=== PATIENT | female | born 1950 | race Caucasian/White ===

== ENCOUNTER → 2017-06-21 | Outpatient (CLI) | payer MEDICARE, OTHER ==
[~2017-06-21] MED LIST: ALLOPURINOL300 MG PO; AMLODIPINE BESY10 MG PO; ARTIFICIAL TEAR15 ML OP; ATENOLOL50 MG PO; BACTRIM DS TAB1 EACH PO; CEFTIN PO; CLONIDINE HCL0.2 MG PO; CLOPIDOGREL75 MG PO; DIOVAN320 MG PO; FUROSEMIDE20 MG PO; JANUVIA100 MG PO; JANUVIA50 MG PO; LASIX40 MG PO; LEVOTHYROXINE150 MCG PO; LEVOTHYROXINE75 MCG PO; LISINOPRIL10 MG PO; LYRICA150 MG PO; LYRICA75 MG PO; MELOXICAM7.5 MG PO; METFORMIN HCL1000 MG PO; METFORMIN HCL500 MG PO; METOPROLOL SUC100 MG PO; METOPROLOL SUCC50 MG PO; NITROGLYCERIN1 EAC1 TD; OMEPRAZOLE40 MG PO; OXYBUTYNIN CHLOR5 MG PO; PROAIR HFA INH8.5 GM INH; PROMETHAZINE HC25 M1 PO; SPIRIVA18 MCG INH; TRADJENTA PO; TRIAMCINOLONE A15 G2; TYLENOL # 31 EA PO; TYLENOL WITH C1 EACH PO; VALSARTAN PO; VESICARE5 MG PO
--- NOTE | 2017-06-21 09:05 | Diagnostic Imaging Report ---
PROCEDURE:X-RAY ABDOMEN - KUB COMPARISON:CT abdomen and pelvis 12/03/2016. INDICATIONS:CALCULUS OF THE KIDNEY FINDINGS: There is a non-obstructed bowel-gas pattern. Multiple splenic calcifications are noted. There are no calcifications projected over the renal shadows, expected course of the ureters or bladder. Phleboliths are present in the pelvis. There are no acute osseous abnormalities. Degenerative changes of the lumbar spine. The lung bases are clear. CONCLUSION: No acute radiographic abnormality. Dictated by: Bethel Sweeney M.D. on 06/21/2017 at 9:07 Electronically approved by: Bethel Sweeney M.D. on 06/21/2017 at 9:07
== END ==
LOC: RAD 08:07
PROVIDERS: ATTEND Urology
DX: N20.0 Calculus of kidney (principal)
CPT/HCPCS: 74018

== ENCOUNTER 2017-08-30 04:04 | Inpatient (IN) | payer MEDICARE, OTHER ==
[2017-08-30] VITALS (7 sets, daily range): BP systolic 104–161; BP diastolic 51–71
[~2017-08-30] VITALS: Ht 154.9 cm; Wt 133.4 kg
[2017-08-30] MEDS ORDERED: ASPIRIN 81 MG CHEW TAB PO ONE ×2 (04:15→05:15)
[2017-08-30 04:30] LABS: BASOPHILS % 0.2 % (0.0-1.0); EOSINOPHILS % 0.1 % (0.0-6.0); HEMATOCRIT 41.2 % (34.2-44.1); HEMOGLOBIN 13.6 g/dL (12.0-16.0); LYMPHOCYTES # (AUTO) 3.5 (1.0-3.2); LYMPHOCYTES % 34.7 % (18.0-39.1); MEAN CORPUSCULAR HEMOGLOBIN 29.3 pg (28-32); MEAN CORPUSCULAR VOLUME 88.8 fL (81-99); MONOCYTES # (AUTO) 0.6 (0.2-0.8); MONOCYTES % 6.1 % (4.4-11.3); NEUTROPHILS % 58.4 % (38.7-80.0); PLATELET COUNT 247 x10e3/uL (140-360); RED BLOOD COUNT 4.64 x10e6/uL (3.6-5.1); RED CELL DISTRIBUTION WIDTH 16.6 % (11.7-14.4)
[2017-08-30 04:34] LABS: CLARITY,URINE SL CLOUDY (CLEAR); COLOR,URINE YELLOW (YELLOW)
[2017-08-30 04:35] LABS: BILIRUBIN,URINE NEGATIVE (NEGATIVE); KETONES,URINE NEGATIVE (NEGATIVE); LEUKOCYTE ESTERASE ,URINE 2+ (NEGATIVE); NITRITE,URINE NEGATIVE (NEGATIVE); PROTEIN,URINE DIPSTICK NEGATIVE (NEGATIVE); URINE UROBILINOGEN 0.2 mg/dL (0.2 - 1)
[2017-08-30 04:37] LABS: BACTERIA,URINE MANY /HPF; EPITHELIAL CELLS,URINE MANY /LPF; WBC,URINE (MAN) >50 /HPF (0-5)
[2017-08-30 04:39] LABS: INR 1.05; PROTHROMBIN TIME 12.9 seconds (11.9-14.5)
[2017-08-30 04:40] LABS: PARTIAL THROMBOPLASTIN TIME 29.7 seconds (23.8-35.5)
[2017-08-30 04:47] LABS: ALANINE AMINOTRANSFERASE 21 IU/L (0-55); ALBUMIN 3.7 g/dL (3.5-5.0); ALKALINE PHOSPHATASE 99 IU/L (40-150); ANION GAP 13.4 mmol/L (8-16); BLOOD UREA NITROGEN 16 mg/dL (7-26); BUN/CREATININE RATIO 21 (6-25); CALCIUM 9.4 mg/dL (8.4-10.2); CARBON DIOXIDE 28 mmol/L (22-29); CHLORIDE 104 mmol/L (98-107); CREATINE KINASE 59 IU/L (29-168); CREATININE, SERUM 0.77 mg/dL (0.57-1.11); EST GLOMERULAR FILTRATION RATE > 60 ML/MIN (60-); GLUCOSE 138 mg/dL (74-118); MAGNESIUM 1.7 MG/DL (1.3-2.1); POTASSIUM 4.4 mmol/L (3.5-5.1); SODIUM 141 mmol/L (136-145)
[2017-08-30] MEDS ORDERED: XIIDRA OP (04:48)
--- NOTE | 2017-08-30 05:22 | Diagnostic Imaging Report ---
EXAMINATION: CHEST SINGLE (NOT PORTABLE) INDICATION: Chest pain COMPARISON: 12/24/2016 FINDINGS: TUBES and LINES: None. LUNGS: Lungs are not well inflated. There are bibasilar atelectasis. Left lower lobe is not visualized cardiac silhouette PLEURA: No pleural effusion or pneumothorax. HEART AND MEDIASTINUM: Cardiac size is severely enlarged. There are atherosclerotic calcifications within the aorta. BONES AND SOFT TISSUES: No acute osseous lesion. Soft tissues are unremarkable. UPPER ABDOMEN: No free air under the diaphragm. IMPRESSION: Moderate cardiomegaly without decompensation. Signed by: Dr. Patrick Riddle M.D. on 08/30/2017 5:19 AM
--- NOTE | 2017-08-30 07:04 | Diagnostic Imaging Report ---
EXAM: CT Chest WITH contrast 08/30/2017 5:27 AM INDICATION: Pulmonary embolism COMPARISON: None TECHNIQUE: Chest was scanned utilizing a multidetector helical scanner from the lung apex through the level of the adrenal glands without administration of IV contrast. Coronal and sagittal reformations were obtained. PE protocol was performed. IV CONTRAST: 65 mL of Isovue-370 RADIATION DOSE: Total DLP: 606.19 mGy*cm Estimated effective dose: (DLP x 0.014 x size factor) mSv COMPLICATIONS: None FINDINGS: LINES/ TUBES: None. LUNGS AND AIRWAYS: The lungs are remarkable for calcified granuloma in the right midlung. Airways are normal. PLEURA: The pleural spaces are clear. HEART AND MEDIASTINUM: The thyroid gland is normal. No mediastinal, hilar or axillary lymphadenopathy. The heart is normal in size.. There is no pericardial effusion. There are moderate atherosclerotic calcifications in the aorta and coronary arteries. UPPER ABDOMEN: Limited non-contrast views of the upper abdomen show no abnormality within the visualized liver, pancreas, or kidneys. The adrenal glands are normal. Calcified granulomas in the spleen. BONES: The visualized bony thorax is within normal limits. SOFT TISSUES: Unremarkable. IMPRESSION: No evidence of pulmonary embolism or acute intrathoracic abnormality. Signed by: Dr. Patrick Riddle M.D. on 08/30/2017 7:01 AM
[2017-08-30] MEDS ORDERED: IOPAMIDOL 370 MG/ML 200 ML INFUS..BTL INJ ONE (07:12)
[2017-08-30] MEDS ORDERED: SODIUM CHLORIDE 0.9% 50ML 50 ML ONE (07:12)
[2017-08-30 08:22] LABS: CHOL/HDL RATIO 4.8 (3.0-3.6)
[2017-08-30] MEDS: LEVOTHYROXINE SODIUM 100 MCG TAB PO SCH (09:00)
[2017-08-30] MEDS: ASPIRIN 81 MG ENTERIC COATED PO SCH (09:00)
[2017-08-30] MEDS ORDERED: LEVOTHYROXINE SODIUM 75 MCG TAB PO SCH (09:00)
[2017-08-30] MEDS: LEVOTHYROXINE SODIUM 75 MCG TAB PO SCH (09:00)
[2017-08-30] MEDS ORDERED: VALSARTAN 320 MG PO SCH (09:00)
[2017-08-30] MEDS ORDERED: ONDANSETRON HCL INJ 2 MG/ML VIAL IV PRN (09:45)
--- NOTE | 2017-08-30 10:22 | History and Physical ---
PRIMARY CARE PHYSICIAN: Dr. Linden Funk. CHIEF COMPLAINT: Chest pain. HISTORY OF PRESENT ILLNESS: This is a 67-year-old with a history of GERD, now developing chest discomfort, 10/10, sharp. No shortness of breath. She did have mild nausea and dizziness, but all symptoms have resolved. Her last stress test was more than 2 years ago. She has no coronary stents. She is currently symptom-free. PAST MEDICAL HISTORY: Obstructive uropathy, urolithiasis, hypertension, diabetes mellitus type 2, morbid obesity, hypothyroidism, and gout. 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 ALLERGIES: PER ELECTRONIC MEDICAL RECORD. FAMILY HISTORY/SOCIAL HISTORY: Patient is . She has 4 children. No alcohol or illicits. Quit cigarettes. MEDICATIONS: Per electronic medical record. REVIEW OF SYSTEMS: Denies any dizziness or chest pain at this time. Denies any nausea, vomiting, or diarrhea. Denies any headache or blurred vision. PHYSICAL EXAMINATION VITAL SIGNS: Reviewed. GENERAL: A tired-appearing woman resting in bed. HEENT: Anicteric. Pupils reactive to light. No oral lesions. CARDIOVASCULAR: Normal S1 and S2. She has a slow heart rate. LUNGS: Moderate breath sounds. ABDOMEN: Soft and nondistended. She has mild epigastric discomfort. EXTREMITIES: No edema or calf tenderness. NEUROLOGICAL: She is alert and oriented times 3. She is moving all extremities. SKIN: Dry. PSYCHIATRIC: Flat affect. LABS: Reviewed. MEDICATIONS: Reviewed. ASSESSMENT: This is a 67-year-old woman with 1. Chest pain. 2. Diabetes mellitus type 2. 3. Morbid obesity. 4. Hypertension. 5. Bradycardia. 6. Hypothyroidism. 7. Gastroesophageal reflux disease. PLAN 1. Trend cardiac enzymes. 2. Follow cardiology recommendation. 3. Left ventricular ejection fraction normal. 4. Obtain hemoglobin A1c and lipid panel. 5. Needs caloric restriction outpatient for weight loss and exercise. 6. Hold beta kaushal due to bradycardia and use hydralazine. 7. Start Lovenox . 8. Disposition: Follow up cardiology recommendations. First cardiac enzyme is negative which was today at 4 a.m. We will obtain a 2nd cardiac enzyme to further assess. Job#: [id number] CF
[2017-08-30] MEDS: VALSARTAN 160 MG TAB PO SCH (10:30)
[2017-08-30] MEDS: HYDRALAZINE HCL 25 MG TAB PO SCH ×3 (10:30→21:18)
[2017-08-30] MEDS: ALLOPURINOL 300 MG TAB PO SCH (10:30)
[2017-08-30] MEDS: PREGABALIN 75 MG CAP PO SCH ×3 (10:30→21:18)
[2017-08-30] MEDS: FUROSEMIDE 40 MG TAB PO SCH (10:30)
--- NOTE | 2017-08-30 11:40 | Consultation ---
DATE OF CONSULTATION: August 30, 2017 CARDIOLOGY CONSULTATION ATTENDING PHYSICIAN: Dr. Yañez Thanks so much for asking me to see this nice lady in consultation. Ms. Phillips is a pleasant 67-year-old woman who was admitted overnight through the emergency room with a complaint of substernal chest discomfort. HISTORY OF PRESENT ILLNESS: The patient reports this is her 1st time to have this type of discomfort and had been doing relatively well but was awakened overnight by substernal aching sort of discomfort that was not relieved until presenting to the emergency room. She denies having any similar previous problems. She does report that she has sleep apnea and that she does not use her CPAP and, thus, not treated. PAST MEDICAL HISTORY: Significant for lithotripsy in early 2018. She had remote ankle fracture with repair and says that recent endometrial biopsy suggested endometrial cancer but has not had a change to follow up on this yet. She has hypertension and hyperglycemia. HOME MEDICATIONS: Include: 1. Allopurinol 300 mg daily. 2. Furosemide 40 mg daily. 3. Levothyroxine 75 mcg daily. 4. Meloxicam 7.5 mg daily. 5. Metformin 1,000 mg b.i.d. 6. Metoprolol succinate 100 mg daily. 7. Lyrica 75-mg tablet, 150 mg t.i.d. 8. Diovan 320 mg daily. 9. Tradjenta 5 mg daily. 10. Eye drops. PERSONAL HISTORY: She does not smoke. REVIEW OF SYSTEMS CARDIAC: She has not had previous chest pain or knowledge of any cardiac problem. She has said that a visiting nurse who comes to the house has described perhaps a slight murmur. GASTROINTESTINAL: No significant problems previously diagnosed. PHYSICAL EXAMINATION GENERAL: Exam at this time shows a pleasant, morbidly obese, white woman sitting in a chair, 5 feet 1 inch tall, weighing 268 pounds. She thinks that she has lost some weight. VITALS: Blood pressure 106/51, pulse 51 and regular. HEENT: Unremarkable. NECK: No jugular venous distention, although the neck is very thick. THORAX: Heart sounds S1 and S2 are equal. There is a faint 1/6 systolic murmur. LUNGS: Relatively clear. ABDOMEN: Markedly protuberant. EXTREMITIES: No cyanosis, clubbing or edema. EKG shows sinus bradycardia with competing junctional rhythm. LABS: Initial laboratory studies show glucoses 138 and 174. Urinalysis shows greater than 50 white cells per high power field. CAT scan of the chest shows minor calcification in the coronaries, no evidence of pulmonary embolus. Lipid profile shows cholesterol 177, triglycerides 159, HDL 37, LDL 108. ASSESSMENT 1. Chest discomfort, likely gastroesophageal reflux. 2. Morbid obesity. 3. Untreated sleep apnea. 4. Sinus bradycardia while taking metoprolol at home. 5. Hypertension. 6. Hyperglycemia. 7. Urinary tract infection. PLAN: Will withhold metoprolol and monitor blood pressure and heart rhythm. Await other cardiac enzymes and plan Cardiolite in the morning. Thank you for asking me to see her in consultation. Job#: [id number] cc:MD DEE DEE SONG DO CLEVE O. JAMES, MD
[2017-08-30 12:01] LABS: CREATINE KINASE MB 8.9 ng/mL (0-5.0)
[2017-08-30] MEDS ORDERED: DEXTROSE 50% SYRINGE 50 ML IV PRN (12:15)
[2017-08-30 15:05] LABS: BILIRUBIN,URINE NEGATIVE (NEGATIVE); CLARITY,URINE CLOUDY (CLEAR); COLOR,URINE YELLOW (YELLOW); KETONES,URINE NEGATIVE (NEGATIVE); LEUKOCYTE ESTERASE ,URINE 2+ (NEGATIVE); NITRITE,URINE NEGATIVE (NEGATIVE); PROTEIN,URINE DIPSTICK 1+ (NEGATIVE); URINE UROBILINOGEN 0.2 mg/dL (0.2 - 1)
[2017-08-30 15:17] LABS: BACTERIA,URINE FEW /HPF; EPITHELIAL CELLS,URINE FEW /LPF; WBC,URINE (MAN) 21-50 /HPF (0-5)
[2017-08-30] MEDS: FAMOTIDINE 20 MG TAB PO SCH (16:20)
[2017-08-30] MEDS: INSULIN LISPRO 100 UNIT/1 ML 3ML VIAL SQ SCH ×2 (16:20→21:18)
[2017-08-30] MEDS ORDERED: ENOXAPARIN SOD INJ 40 MG/0.4 ML SYR SC SCH (17:00)
[2017-08-30] MEDS ORDERED: SUCCINYLCHOLINE 200 MG/10 ML SYR ONE (17:01)
[2017-08-30] MEDS ORDERED: LIDOCAINE HCL 2% LOCAL INJ 5 ML SDV VIAL INJ ONE (17:01)
[2017-08-30] MEDS ORDERED: PROPOFOL IV EMULSION 10 MG/ML 20 ML VIAL ONE (17:01)
[2017-08-30] MEDS ORDERED: ROCURONIUM BROMIDE 10 MG/ML 5ML VIAL ONE (17:01)
[2017-08-30] MEDS ORDERED: SEVOFLURANE INHAL SOLN 250 ML PEN BTL ONE (17:01)
[2017-08-30 21:25] LABS: CREATINE KINASE MB 60.1 ng/mL (0-5.0)
[2017-08-30] MEDS ORDERED: CALCIUM CARBONATE 500 MG CHEWABLE TABS PO PRN (21:30)
[2017-08-30] MEDS: METOCLOPRAMIDE HCL 10 MG TAB PO SCH (22:16)
[2017-08-31] VITALS (60 sets, daily range): BP systolic 52–152; BP diastolic 26–94
[2017-08-31] MEDS ORDERED: ACETAMINOPHEN 325 MG TAB PO PRN (04:45)
[2017-08-31 05:06] LABS: BASOPHILS # (AUTO) 0.1 (0.0-0.1); BASOPHILS % 0.3 % (0.0-1.0); HEMATOCRIT 39.8 % (34.2-44.1); HEMOGLOBIN 13.1 g/dL (12.0-16.0); LYMPHOCYTES # (AUTO) 4.4 (1.0-3.2); MEAN CORPUSCULAR HEMOGLOBIN 29.5 pg (28-32); MEAN CORPUSCULAR HGB CONC 32.9 g/dL (31-35); MEAN CORPUSCULAR VOLUME 89.6 fL (81-99); MONOCYTES # (AUTO) 1.2 (0.2-0.8); MONOCYTES % 7.4 % (4.4-11.3); NEUTROPHILS % 65.9 % (38.7-80.0); PLATELET COUNT 264 x10e3/uL (140-360); RED BLOOD COUNT 4.44 x10e6/uL (3.6-5.1); RED CELL DISTRIBUTION WIDTH 16.9 % (11.7-14.4)
[2017-08-31] MEDS: LEVOTHYROXINE SODIUM 75 MCG TAB PO SCH (05:25)
[2017-08-31] MEDS: LEVOTHYROXINE SODIUM 100 MCG TAB PO SCH (05:25)
[2017-08-31 05:34] LABS: ALBUMIN 3.5 g/dL (3.5-5.0); ANION GAP 17.6 mmol/L (8-16); CALCIUM 9.1 mg/dL (8.4-10.2); CHOL/HDL RATIO 4.8 (3.0-3.6); POTASSIUM 4.6 mmol/L (3.5-5.1)
[2017-08-31 05:36] LABS: CREATININE, SERUM 1.73 mg/dL (0.57-1.11)
[2017-08-31] MEDS ORDERED: SODIUM CHLORIDE 0.9% 500ML 500 ML ONE (06:42)
[2017-08-31] MEDS ORDERED: SODIUM CHLORIDE 0.9% 500ML 500 ML IV ONE (07:00)
[2017-08-31] MEDS ORDERED: SODIUM CHLORIDE 0.9% 1000ML 1,000 ML IV SCH ×3 (07:00→15:44)
[2017-08-31 07:01] LABS: INR 1.08; PROTHROMBIN TIME 13.2 seconds (11.9-14.5)
[2017-08-31 07:02] LABS: PARTIAL THROMBOPLASTIN TIME 32.3 seconds (23.8-35.5)
--- NOTE | 2017-08-31 07:13 | Diagnostic Imaging Report ---
PROCEDURE: CHEST SINGLE (PORTABLE) COMPARISON: Chest radiograph and chest CT 08/30/2017. INDICATIONS: LOW HEART RATE FINDINGS: The lungs remain well inflated. No focal consolidation, pleural effusion, or pneumothorax. Calcified right hilar lymph nodes and calcified right midlung granuloma unchanged. Stable cardiomediastinal contour, with prominent mediastinal fat shown on comparison CT. No overt pulmonary edema. No acute osseous abnormality. CONCLUSION: No acute thoracic abnormality. Stable appearance of the chest relative to 08/30/2017. Dictated by: Quinton Acosta M.D. on 08/31/2017 at 7:16 Electronically approved by: Quinton Acosta M.D. on 08/31/2017 at 7:16
--- NOTE | 2017-08-31 07:28 | Diagnostic Imaging Report ---
Examination: CT BRAIN WITHOUT CONTRAST History:Headache. Left eye vision change. Comparison studies:None Technique: Axial images were obtained from the skull base to the vertex. Coronal and sagittal images reconstructed from the axial data. Intravenous contrast: None Findings: Scalp: No abnormalities. Bones: No fractures, blastic or lytic lesions. Brain sulci: Appropriate for age. Ventricles: Normal in size and configuration. No hydrocephalus. Extra-axial space: No abnormalities. Parenchyma: No abnormal densities. No masses, hemorrhage, or acute or chronic cortical based vascular insults.. Sellar/suprasellar region: No abnormalities. Craniocervical junction: Patent foramen magnum. No Chiari one malformation. Incidental findings: None. Impression: No intracranial abnormalities. Signed by: Dr. Charlene Dwyer M.D. on 08/31/2017 7:25 AM
[2017-08-31] MEDS: FAMOTIDINE 20 MG TAB PO SCH ×2 (07:30→16:30)
[2017-08-31] MEDS: INSULIN LISPRO 100 UNIT/1 ML 3ML VIAL SQ SCH ×4 (07:30→21:15)
[2017-08-31] MEDS ORDERED: ATROPINE SULFATE 0.1 MG/ML 10ML SYR ONE ×2 (08:27→14:00)
[2017-08-31] MEDS ORDERED: ATROPINE SULFATE 1 MG/ML VIAL IV ONE (08:30)
[2017-08-31] MEDS ORDERED: ATROPINE SULFATE INJ 0.4 MG/ML VIAL IV ONE (08:45)
[2017-08-31] MEDS: ASPIRIN 81 MG ENTERIC COATED PO SCH (09:00)
[2017-08-31] MEDS: FUROSEMIDE 40 MG TAB PO SCH (09:00)
[2017-08-31] MEDS: PREGABALIN 75 MG CAP PO SCH ×3 (09:00→22:08)
[2017-08-31] MEDS: METOCLOPRAMIDE HCL 10 MG TAB PO SCH ×3 (09:00→22:08)
[2017-08-31] MEDS: HYDRALAZINE HCL 25 MG TAB PO SCH ×3 (09:00→22:08)
[2017-08-31] MEDS: VALSARTAN 160 MG TAB PO SCH (09:00)
[2017-08-31] MEDS: ALLOPURINOL 300 MG TAB PO SCH (09:00)
[2017-08-31] MEDS ORDERED: REGADENOSON 0.4 MG/5 ML SYR IV ONE (10:00)
[2017-08-31] MEDS ORDERED: ENOXAPARIN SOD INJ 60 MG/0.6 ML SYR SC SCH (12:45)
--- NOTE | 2017-08-31 13:25 | Progress Note ---
DATE: August 31, 2017 MEDICINE PROGRESS NOTE TIME OF SERVICE: 11 a.m. Overnight the patient was moved to the ICU due to bradyarrhythmia. REVIEW OF SYSTEMS: Denies any chest pain, shortness of breath. VITAL SIGNS: Reviewed. PHYSICAL EXAMINATION GENERAL: A tired-appearing woman resting in bed. HEENT: Anicteric. CARDIOVASCULAR: Normal S1, S2. She has a slow heart rate. LUNGS: Moderate breath sounds. ABDOMEN: Soft, nontender, nondistended. EXTREMITIES: No edema or calf tenderness. NEUROLOGICAL: She is alert. She moves all extremities. SKIN: Dry. PSYCHIATRIC: Flat affect. LABS: Reviewed. MEDICATIONS: Reviewed. ASSESSMENT: A 67-year-old woman. 1. Chest pain. 2. Bradyarrhythmia. 3. Diabetes mellitus type 2. 4. Morbid obesity. 5. Hypertension. 6. Hypothyroidism. 7. Gastroesophageal reflux disease. 8. New leukocytosis. 9. Acute kidney injury. 10. Non-ST elevation myocardial infarction with troponin increased to 22. 11. Urinary tract infection. 12. Sepsis with low blood pressure, bradyarrhythmia and leukocytosis with urinary tract infection. PLAN 1. She is status post atropine. 2. Stress test with a left heart cath is pending today. 3. Continue to avoid AV blocking agents. 4. Will continue rehydration. 5. Add IV ceftriaxone. 6. Recheck labs this afternoon. 7. Will increase Lovenox to treatment dose 50 q.12. 8. Will continue with Pepcid. Critical care time more than 90 minutes. Job#: [id number] BETH
[2017-08-31] MEDS ORDERED: LIDOCAINE HCL 2% LOCAL 20 ML VIAL ONE ×3 (13:43→14:46)
[2017-08-31] MEDS ORDERED: HEPARIN SOD/SOD CHLORIDE 2,000 ML ONE (13:43)
[2017-08-31] MEDS ORDERED: IOPAMIDOL 370 MG/ML 200 ML INFUS..BTL INJ ONE ×2 (13:44→15:17)
[2017-08-31] MEDS ORDERED: FENTANYL CITRATE/PF 100MCG/2 ML INJ ONE (14:08)
[2017-08-31] MEDS ORDERED: MIDAZOLAM HCL 2 MG/2 ML VIAL ONE (14:08)
[2017-08-31] MEDS ORDERED: ATROPINE SULFATE INJ 0.4 MG/ML VIAL IV PRN (14:15)
[2017-08-31] MEDS ORDERED: ATROPINE SULFATE INJ 0.4 MG/ML VIAL ONE (14:46)
[2017-08-31] MEDS ORDERED: HEPARIN SOD (PORCINE) 1000 UNIT/ML 30ML ONE (15:15)
[2017-08-31] MEDS ORDERED: EPTIFIBATIDE 10 ML ONE ×2 (15:15→15:20)
[2017-08-31] MEDS ORDERED: EPTIFIBATIDE 0 ML ONE (15:15)
[2017-08-31] MEDS ORDERED: NITROGLYCERIN/D5W 200 MCG/ML 250 ML ONE (15:16)
[2017-08-31] MEDS ORDERED: ASPIRIN 325 MG TAB ONE (15:39)
[2017-08-31] MEDS ORDERED: CLOPIDOGREL BISULFATE 75 MG TAB ONE (15:39)
[2017-08-31] MEDS ORDERED: MORPHINE SULFATE 2 MG/ML SYR ONE (15:40)
[2017-08-31] MEDS ORDERED: ONDANSETRON HCL INJ 2 MG/ML VIAL IV PRN (15:45)
[2017-08-31] MEDS ORDERED: PROMETHAZINE HCL (IM) 25 MG/ML VIAL ONE (15:46)
[2017-08-31] MEDS: CEFTRIAXONE SOD 1 GM VIAL IV SCH (17:04)
[2017-08-31] MEDS: SODIUM CHLORIDE 0.9% 1000ML 1,000 ML IV SCH (18:15)
[2017-08-31] MEDS ORDERED: ENOXAPARIN SOD INJ 40 MG/0.4 ML SYR SC SCH (21:00)
[2017-09-01] VITALS (85 sets, daily range): BP systolic 69–116; BP diastolic 43–94
[2017-09-01] MEDS: ACETAMINOPHEN 325 MG TAB PO PRN ×2 (02:48→09:32)
[2017-09-01] MEDS: SODIUM CHLORIDE 0.9% 1000ML 1,000 ML IV SCH ×3 (04:17→22:31)
[2017-09-01 05:33] LABS: ANION GAP 11.8 mmol/L (8-16); BLOOD UREA NITROGEN 33 mg/dL (7-26); BUN/CREATININE RATIO 37 (6-25); CALCIUM 8.2 mg/dL (8.4-10.2); CARBON DIOXIDE 24 mmol/L (22-29); CHLORIDE 105 mmol/L (98-107); CREATININE, SERUM 0.89 mg/dL (0.57-1.11); EST GLOMERULAR FILTRATION RATE > 60 ML/MIN (60-); GLUCOSE 155 mg/dL (74-118); MAGNESIUM 1.9 MG/DL (1.3-2.1); POTASSIUM 4.8 mmol/L (3.5-5.1); SODIUM 136 mmol/L (136-145)
[2017-09-01 06:02] LABS: BASOPHILS % 0.3 % (0.0-1.0); HEMATOCRIT 35.1 % (34.2-44.1); HEMOGLOBIN 11.6 g/dL (12.0-16.0); LYMPHOCYTES # (AUTO) 2.2 (1.0-3.2); LYMPHOCYTES % 13.7 % (18.0-39.1); MEAN CORPUSCULAR HEMOGLOBIN 29.2 pg (28-32); MEAN CORPUSCULAR VOLUME 88.4 fL (81-99); MONOCYTES # (AUTO) 1.3 (0.2-0.8); MONOCYTES % 7.8 % (4.4-11.3); NEUTROPHILS # (AUTO) 12.4 (2.1-6.9); NEUTROPHILS % 77.8 % (38.7-80.0); PLATELET COUNT 236 x10e3/uL (140-360); RED BLOOD COUNT 3.97 x10e6/uL (3.6-5.1)
[2017-09-01] MEDS: LEVOTHYROXINE SODIUM 75 MCG TAB PO SCH (06:05)
[2017-09-01] MEDS: LEVOTHYROXINE SODIUM 100 MCG TAB PO SCH (06:05)
[2017-09-01] MEDS: INSULIN LISPRO 100 UNIT/1 ML 3ML VIAL SQ SCH ×4 (08:30→20:18)
[2017-09-01] MEDS: HYDRALAZINE HCL 25 MG TAB PO SCH ×3 (09:00→20:06)
[2017-09-01] MEDS: CEFTRIAXONE SOD 1 GM VIAL IV SCH (09:30)
[2017-09-01] MEDS: FAMOTIDINE 20 MG TAB PO SCH ×2 (09:30→15:14)
[2017-09-01] MEDS: FUROSEMIDE 40 MG TAB PO SCH (09:30)
[2017-09-01] MEDS: ASPIRIN 325 MG TAB PO SCH (09:30)
[2017-09-01] MEDS: PREGABALIN 75 MG CAP PO SCH ×3 (09:31→20:06)
[2017-09-01] MEDS: METOCLOPRAMIDE HCL 10 MG TAB PO SCH ×3 (09:31→20:06)
[2017-09-01] MEDS: ALLOPURINOL 300 MG TAB PO SCH (09:31)
[2017-09-01] MEDS: CLOPIDOGREL BISULFATE 75 MG TAB PO SCH (09:31)
[2017-09-01] MEDS: VALSARTAN 160 MG TAB PO SCH (09:33)
--- NOTE | 2017-09-01 15:05 | Consultation ---
DATE OF CONSULTATION: September 01, 2017 NEUROLOGY CONSULTATION HISTORY OF PRESENT ILLNESS: Ms. Phillips is a 67-year-old [id number] woman with past medical history significant for hypertension, hyperlipidemia, diabetes mellitus type 2, coronary artery disease, obstructive sleep apnea admitted to [facility] on August 30, 2017 with chest pain. On August 31, 2017, the patient experienced transient neurological symptoms suspicious for a transient ischemic attack, or stroke. On the morning of August 31, 2017, a rapid response was called when the patient was noted to be bradycardic with heart rate of 29 beats per minute. Shortly after the rapid response was called, the patient was taken for a CT of the brain without contrast which did not show evidence of recent large territorial ischemia, hemorrhage, mass, or mass effect. Upon returning from the CT scan, patient endorsed a visual disturbance which was further described as binocular diplopia which resolved with closing either eye. Ms. Lovelace's and son, who are at the bedside, endorse drooping of the left eyelid as well. Neither the patient nor her family endorse a visual field cut, dysarthria, aphasia, facial droop, hemiparesis, or hemihypesthesia. Due to the presence of chest pain and severe bradycardia, Ms. Phillips was taken for cardiac catheterization on the afternoon of August 31 2017. During the cardiac catheterization, the patient was found to have a moderate 3 vessel coronary artery disease with occlusion of the PL. Temporary pacemaker was placed to treat the bradycardia, and patient was admitted to the intensive care unit for further monitoring. Following cardiac catheterization, the patient remained sedated. When she awoke on the morning of September 01, 2017, the previously reported visual disturbance was resolved. Ms. Phillips does report experiencing a headache at the time of the visual disturbance. The headache is described as follows: The headache was located over the left side of the head. The pain was described as a dull ache and rated at 5 to 6 out of 10. There was no photophobia, phonophobia, nausea, vomiting, or confusion associated with the headache. Ms. Phillips does report possible dizziness which is further described as lightheadedness. Ms. Phillips does not endorse a prior history of migraines or other headache disorders. REVIEW OF SYSTEMS: Chest pain, double vision, headache, possible dizziness. Otherwise the 12 point review of systems is negative. PAST MEDICAL HISTORY: Hypertension, hyperlipidemia, diabetes mellitus type 2, coronary artery disease, thyroid disease, gout, history of nephrolithiasis, recently diagnosed genitourinary cancer, obstructive sleep apnea. PAST SURGICAL HISTORY: Cardiac catheterization, bilateral carpal tunnel release, left ankle surgery, bilateral tubal ligation. PAST HOSPITALIZATIONS: Surgeries/procedures as listed, nephrolithiasis, childbirth times 2. FAMILY HISTORY: The patient's paternal grandparents are . Their medical histories are unknown. The patient's maternal grandfather is . His medical history is unknown. Ms. Phillips' maternal grandmother is . She had diabetes mellitus and coronary artery disease. The patient's father is . His medical history is unknown. Ms. Phillips' mother is from coronary artery disease with prior myocardial infarction. The patient has 1 brother and 2 sisters, all of whom are alive. One sister has coronary artery disease. Ms. Phillips has 2 children, a son and a daughter. Both are alive and healthy. SOCIAL HISTORY: Patient is . She completed school through the 12th grade. She is a housewife. The patient does not report current or prior tobacco or recreational drug use. She reports social alcohol use. HOME MEDICATIONS: Allopurinol 300 mg by mouth daily, Lasix 40 mg by mouth daily, levothyroxine 175 mcg by mouth daily, meloxicam 7.5 mg by mouth daily, metformin 1000 mg by mouth twice daily, metoprolol 100 mg by mouth daily, Lyrica 150 mg by mouth three times daily, valsartan 320 mg by mouth daily, Tradjenta 5 mg by mouth daily, Xiidra one drop in each eye every 12 hours. ALLERGIES: NO KNOWN DRUG ALLERGIES. NO KNOWN FOOD ALLERGIES. NO KNOWN ALLERGIES TO LATEX. NO KNOWN ALLERGIES TO IODINE OR OTHER CONTRAST MATERIALS. PHYSICAL EXAMINATION: VITAL SIGNS: Height 61 inches, weight 274 pounds, BMI 51.8 kg per meter squared. Blood pressure 98/59 mmHg, pulse 62 beats per minute (100% paced). Respiratory rate 18 breaths per minute. Oxygen saturation 98% on 2 liters by nasal cannula. GENERAL: The patient is awake and alert. Does not appear distressed. Morbidly obese. HEENT: Normocephalic and atraumatic. Pupils are equal, round and reactive to light. Moist mucous membranes. NECK: Supple. No appreciable thyromegaly. No appreciable carotid bruits. CARDIOVASCULAR: S1 and S2. Regular rate and rhythm. No murmurs, rubs or gallops. RESPIRATORY: Clear to auscultation bilaterally. No wheezes, rhonchi or rales. EXTREMITIES: The skin is warm and dry. No clubbing, cyanosis or edema. The posterior tibial and dorsalis pedis pulses are 1+ and symmetric. External pacemaker, right lower extremity. SKIN: No rashes or lesions. NEUROLOGIC: Memory/attention: The patient is awake and alert. Oriented to person, place, time, and situation. CRANIAL NERVES: Cranial nerve I: Not tested. Cranial nerves II, III, IV, : Pupils are slightly asymmetric and round, react briskly to light (from 4 mm to 2 mm on the left and 3.5 mm to 2 mm on the right). Extraocular movements intact. No nystagmus. Cranial nerve V: Sensation to light touch and pinprick is intact in the bilateral V1 through V3 distributions. Strength of the temporalis and masseter muscles is within normal limits. Cranial nerve VII: The face is symmetric, as are all facial movements. Strength is within normal limits. Cranial nerve VIII: Hearing is intact to finger rub bilaterally. Cranial nerve IX and X: The soft palate elevates equally and symmetrically. Cranial nerve XI: Normal strength of the bilateral sternocleidomastoid and trapezius muscles. Cranial nerve XII: The tongue protrudes midline and moves symmetrically from side to side. STRENGTH: Bulk is normal. The patient is able to maintain both arms against gravity for more than 10 seconds each without drift. The patient is able to maintain the left leg against gravity for more than 5 seconds without drift. The right leg is no examined due to the presence of the temporary pacemaker. DTRs: Deep tendon reflexes are 1+ and symmetric at the triceps, biceps, brachioradialis, patellas, and Achilles. Plantar responses are flexor bilaterally. SENSATION: Intact to light touch and pinprick in both arms and both legs. CEREBELLAR: Zzuzmn-yeml-nedaye and heel-martinez movements are intact without dysmetria or other impairment. GAIT: Deferred. SPEECH: Spontaneous speech is normal without appreciable dysarthria or aphasia. Repetition is intact. INVOLUNTARY MOVEMENTS: None. PRONATOR DRIFT: As per motor exam. LABORATORY DATA: Sodium 136, potassium 4.8, chloride 105, carbon dioxide 24, anion gap 11.8, BUN 33, creatinine 0.89 estimated GFR greater than 60, BUN to creatinine ratio 37 and glucose 155, calcium 8.2. Magnesium 1.9. B-natriuretic peptide 787.3, creatinine kinase 59, 161, 781, 1243. CK-MB 1.40, 8.90, 60.10, 80.00. Troponin I 0.045, 0.798, 8.899, 22.978. Hemoglobin A1c 6.3, total cholesterol 177, triglycerides 159, LDL cholesterol 108, HDL cholesterol 37. TSH 1.614. The CBC with differential and platelets reveals a white blood cell count of 15.96 with 77.8% neutrophils, 13.7% lymphocytes, 7.8% monocytes, 0.0% eosinophils and 0.3% basophils. Hemoglobin and hematocrit are 11.6 and 35.1, respectively. Platelet count 236,000. PT 13.2, INR 1.08, PTT 32.3. Urinalysis performed on August 30, 2017 is significant for 1+ protein, 1+ blood, 2+ leukocyte esterase, 6 to 10 red blood cells, 21 to 50 white blood cells and few bacteria. A urine culture showed preliminary result of no gross after 18 to 24 hours. DIAGNOSTIC STUDIES: Chest x-ray on August 30, 2017: Moderate cardiomegaly without decompensation. Chest CT on August 30, 2017: No evidence of pulmonary embolism or acute intrathoracic abnormality. EKG: Sinus bradycardia at [address] of the brain without contrast on August 31, 2017: On my review, there is no evidence of recent large territorial ischemia, hemorrhage, mass, or mass effect. Chest x-ray on August 31, 2017: No acute thoracic abnormality. Stable appearance of the chest relative to August 30, 2017. Echocardiogram on August 31, 2017: Ejection fraction of 60% to 65%. Concentric left ventricular hypertrophy. Left atrial enlargement. Mild mitral regurgitation. ASSESSMENT: Ms. Phillips is a 67-year-old [id number] woman with multiple vascular risk factors with transient visual disturbance of an unknown duration. At present, the patient's neurological examination is nonfocal. Patient's laboratory data and other diagnostic studies have been reviewed and are documented above. In a patient with multiple vascular risk factors experiencing transient neurological deficits, the most probable diagnosis is transient ischemic attack. Given the resolution of the patient's symptoms in less than 24 hours, it is less likely she experienced a stroke. RECOMMENDATIONS: 1. An MRI of the brain without contrast has been ordered and is pending. The MRI of the brain may not be done while the temporary pacemaker is in place. 2. Bilateral carotid artery ultrasound with Doppler will be ordered. 3. Continue aspirin 325 mg by mouth daily and Plavix 75 mg by mouth daily as per cardiology for stroke prophylaxis. 4. The patient's blood pressures are currently at goal. Continue with current medications. Monitor vital signs per unit protocol. 5. Patient's total cholesterol is below the goal of less than 200. However, her LDL is elevated at 108. The goal is less than 70. Simvastatin 80 mg by mouth at bedtime daily will be prescribed. 6. The patient's hemoglobin A1c is at goal. Tight glycemic control is recommended while the patient is hospitalized. 7. GI prophylaxis with Pepcid 20 mg by mouth twice daily before meals. DVT prophylaxis is deferred to the primary and other services. 8. Speech and physical therapy consultations will be deferred at present. 9. Defer treatment of the remaining medical comorbidities to the primary and other services. Thank you for this consultation. I will continue to follow this patient while she remains in the hospital. Time spent: 70 minutes. Job#: [id number] МАРИЯ STANLEY
[2017-09-01] MEDS: SIMVASTATIN 20 MG TAB PO SCH (20:06)
[2017-09-02] VITALS (59 sets, daily range): BP systolic 70–173; BP diastolic 29–149
[2017-09-02] MEDS: LEVOTHYROXINE SODIUM 75 MCG TAB PO SCH (05:01)
[2017-09-02] MEDS: LEVOTHYROXINE SODIUM 100 MCG TAB PO SCH (05:01)
[2017-09-02 05:03] LABS: BASOPHILS % 0.1 % (0.0-1.0); HEMATOCRIT 32.8 % (34.2-44.1); HEMOGLOBIN 10.8 g/dL (12.0-16.0); LYMPHOCYTES # (AUTO) 2.1 (1.0-3.2); LYMPHOCYTES % 12.2 % (18.0-39.1); MEAN CORPUSCULAR HEMOGLOBIN 29.7 pg (28-32); MEAN CORPUSCULAR HGB CONC 32.9 g/dL (31-35); MEAN CORPUSCULAR VOLUME 90.1 fL (81-99); MONOCYTES # (AUTO) 1.2 (0.2-0.8); MONOCYTES % 7.3 % (4.4-11.3); NEUTROPHILS # (AUTO) 13.4 (2.1-6.9); NEUTROPHILS % 79.9 % (38.7-80.0); PLATELET COUNT 198 x10e3/uL (140-360); RED BLOOD COUNT 3.64 x10e6/uL (3.6-5.1); RED CELL DISTRIBUTION WIDTH 17.2 % (11.7-14.4)
[2017-09-02 05:45] LABS: ANION GAP 15.3 mmol/L (8-16); CALCIUM 8.1 mg/dL (8.4-10.2); CREATININE, SERUM 0.93 mg/dL (0.57-1.11); POTASSIUM 5.3 mmol/L (3.5-5.1)
[2017-09-02] MEDS: FAMOTIDINE 20 MG TAB PO SCH ×2 (08:13→17:14)
[2017-09-02] MEDS: SODIUM CHLORIDE 0.9% 1000ML 1,000 ML IV SCH ×2 (08:13→17:44)
[2017-09-02] MEDS: CEFTRIAXONE SOD 1 GM VIAL IV SCH (08:13)
[2017-09-02] MEDS: INSULIN LISPRO 100 UNIT/1 ML 3ML VIAL SQ SCH ×4 (08:18→21:20)
[2017-09-02] MEDS: HYDRALAZINE HCL 25 MG TAB PO SCH ×3 (08:19→21:35)
[2017-09-02] MEDS: ALLOPURINOL 300 MG TAB PO SCH (08:19)
[2017-09-02] MEDS: ASPIRIN 325 MG TAB PO SCH (08:19)
[2017-09-02] MEDS: PREGABALIN 75 MG CAP PO SCH ×3 (08:19→21:35)
[2017-09-02] MEDS: METOCLOPRAMIDE HCL 10 MG TAB PO SCH ×3 (08:19→21:35)
[2017-09-02] MEDS: FUROSEMIDE 40 MG TAB PO SCH (08:19)
[2017-09-02] MEDS: CLOPIDOGREL BISULFATE 75 MG TAB PO SCH (08:19)
[2017-09-02] MEDS: ACETAMINOPHEN 325 MG TAB PO PRN (08:19)
[2017-09-02] MEDS: VALSARTAN 160 MG TAB PO SCH (08:20)
[2017-09-02] MEDS: TRAMADOL HCL 50 MG TAB PO PRN ×2 (11:20→21:05)
--- NOTE | 2017-09-02 11:49 | Diagnostic Imaging Report ---
PROCEDURE: A single AP view of the chest. COMPARISON: Patients [facility], CT, CT CHEST W, 08/30/2017, 6:10. Patients [facility], DX, CHEST SINGLE (PORTABLE), 08/31/2017, 7:01. INDICATIONS: PREOPERATIVE XRAY FOR PACEMAKER PLACEMENT FINDINGS: Exam markedly limited by soft tissue attenuation. Lines/tubes: None. Lungs: Lungs are mildly hypoinflated. 6 mm calcified granuloma in the right midlung. No definite consolidation. Mild perihilar interstitial edema. Pleura: There is no pleural effusion or pneumothorax. Heart and mediastinum: Enlarged cardiac silhouette. Moderate central pulmonary venous congestion. Bones: No acute bony abnormality. IMPRESSION: 1. enlarged cardiac silhouette with central pulmonary venous congestion and mild perihilar interstitial edema. 2. Hypoinflated lungs. No consolidation. Mac Ward M.D. Dictated by: Mac Ward M.D. on 09/02/2017 at 11:54 Electronically approved by: Mac Ward M.D. on 09/02/2017 at 11:54
[2017-09-02] MEDS: DOCUSATE SODIUM 100 MG CAP PO SCH (12:46)
--- NOTE | 2017-09-02 13:39 | Operative Report ---
DATE OF PROCEDURE: August 31, 2017 ATTENDING PHYSICIAN: Keron Yañez MD CARDIAC CATHETERIZATION AND INTERVENTION TITLE OF PROCEDURE: Left heart catheterization with coronary angioplasty and temporary transvenous pacemaker with abnormal cardiac enzymes and bradycardia. DETAILS OF PROCEDURE: Patient is brought to the central lab technician. The right groin is prepped and scrubbed with 2% Xylocaine. A 6-Bolivian sheath placed in the right common femoral vein and a transvenous 5-Bolivian pacing catheter is advanced into the right ventricle. It is tested for sensing and capture and rate is set at 60 and output of 3 with sensitivity max. Then a 4-Bolivian sheath was placed in the right common femoral artery. Cardiac catheterization performed with a 4-Bolivian right and left Helder catheters. Inspection of film demonstrates the left main to be relatively unremarkable. The circumflex and OM2 have both about 30% stenoses. The LAD has serial 50% stenoses in the mid and distal portions and large first diagonal is relatively unremarkable. The right coronary artery disease is dominant with minor plaquing until immediately before the posterior descending there is about a 60% stenosis. After the posterior descending and first posterolateral the right coronary is totally occluded with some staining of the vessel by iodine contrast. Then the 4-Bolivian sheath was exchanged for a 6-Bolivian sheath and sewn in place using a 6-Bolivian JR3.5 guide, a 0.014 high-torque floppy was advanced across the total occlusion. The patient is given a total of 8,000 units of heparin. The lesion is ballooned with a 2.0 x 15 mm balloon to 8 atmospheres twice for 45 seconds. Return flow is present and there is about a 30% luminal residual stenosis. The patient tolerated the procedure well. No significant blood loss. No complication. She is given 600 mg Plavix, 325 mg aspirin and is returned to her room in stable condition. She is pacing 100%, rate of 60 and blood pressure is stable about 110/60. FINAL IMPRESSIONS 1. Successful transvenous temporary pacemaker. 2. Total occlusion of the distal right coronary. 3. Successful balloon angioplasty. 4. Mild 3-vessel coronary disease, otherwise as above with 60% distal right, 30% circ, 30% obtuse marginal, and serial 50% stenoses of left anterior descending. Job#: [id number] DG cc:KRISSY COLLINS MD
[2017-09-02] MEDS: SIMVASTATIN 20 MG TAB PO SCH (21:35)
[2017-09-03] VITALS (64 sets, daily range): BP systolic 69–114; BP diastolic 30–100
[2017-09-03] MEDS: SODIUM CHLORIDE 0.9% 1000ML 1,000 ML IV SCH ×3 (03:56→22:56)
[2017-09-03 04:38] LABS: BASOPHILS % 0.2 % (0.0-1.0); EOSINOPHILS % 0.1 % (0.0-6.0); HEMATOCRIT 32.1 % (34.2-44.1); HEMOGLOBIN 10.3 g/dL (12.0-16.0); LYMPHOCYTES # (AUTO) 2.4 (1.0-3.2); LYMPHOCYTES % 14.8 % (18.0-39.1); MEAN CORPUSCULAR HEMOGLOBIN 29.6 pg (28-32); MEAN CORPUSCULAR HGB CONC 32.1 g/dL (31-35); MEAN CORPUSCULAR VOLUME 92.2 fL (81-99); MONOCYTES # (AUTO) 1.4 (0.2-0.8); MONOCYTES % 8.4 % (4.4-11.3); NEUTROPHILS # (AUTO) 12.4 (2.1-6.9); NEUTROPHILS % 75.8 % (38.7-80.0); PLATELET COUNT 177 x10e3/uL (140-360); RED BLOOD COUNT 3.48 x10e6/uL (3.6-5.1); RED CELL DISTRIBUTION WIDTH 17.4 % (11.7-14.4)
[2017-09-03 04:53] LABS: INR 1.3; PROTHROMBIN TIME 15.2 seconds (11.9-14.5)
[2017-09-03 04:54] LABS: PARTIAL THROMBOPLASTIN TIME 33.2 seconds (23.8-35.5)
[2017-09-03 05:04] LABS: ALBUMIN 2.6 g/dL (3.5-5.0); ALBUMIN/GLOBULIN RATIO 0.7 (0.8-2.0); ANION GAP 13.8 mmol/L (8-16); CALCIUM 8.3 mg/dL (8.4-10.2); CREATININE, SERUM 1.18 mg/dL (0.57-1.11); POTASSIUM 5.8 mmol/L (3.5-5.1)
[2017-09-03] MEDS: LEVOTHYROXINE SODIUM 75 MCG TAB PO SCH (06:00)
[2017-09-03] MEDS ORDERED: CEFAZOLIN SOD 1 GM VIAL IV PRN (06:00)
[2017-09-03] MEDS: LEVOTHYROXINE SODIUM 100 MCG TAB PO SCH (06:00)
[2017-09-03] MEDS: FAMOTIDINE 20 MG TAB PO SCH ×2 (07:30→16:30)
[2017-09-03] MEDS ORDERED: SOD POLYSTYRENE SULFONATE SUSP 15 GM/60 ML BTL PO ONE (07:45)
[2017-09-03] MEDS ORDERED: SOD POLYSTYRENE SULFONATE SUSP 15 GM/60 ML BTL PR NR (08:00)
[2017-09-03] MEDS: CLOPIDOGREL BISULFATE 75 MG TAB PO SCH (09:00)
[2017-09-03] MEDS: VALSARTAN 160 MG TAB PO SCH (09:00)
[2017-09-03] MEDS: FUROSEMIDE 40 MG TAB PO SCH (09:00)
[2017-09-03] MEDS: ASPIRIN 325 MG TAB PO SCH (09:00)
[2017-09-03] MEDS: PREGABALIN 75 MG CAP PO SCH ×3 (09:00→20:12)
[2017-09-03] MEDS: DOCUSATE SODIUM 100 MG CAP PO SCH ×2 (09:00→17:00)
[2017-09-03] MEDS: METOCLOPRAMIDE HCL 10 MG TAB PO SCH ×3 (09:00→20:12)
[2017-09-03] MEDS: HYDRALAZINE HCL 25 MG TAB PO SCH ×3 (09:00→20:00)
[2017-09-03] MEDS ORDERED: CEFAZOLIN SOD IV PRN (09:00)
[2017-09-03] MEDS: ALLOPURINOL 300 MG TAB PO SCH (09:00)
[2017-09-03] MEDS ORDERED: D5W IV PRN (09:00)
[2017-09-03] MEDS: CEFTRIAXONE SOD 1 GM VIAL IV SCH (09:05)
[2017-09-03] MEDS ORDERED: IOPAMIDOL 370 MG/ML 200 ML INFUS..BTL INJ ONE (10:14)
[2017-09-03] MEDS ORDERED: BACITRACIN 50,000 UNIT VIAL ONE (10:14)
[2017-09-03] MEDS ORDERED: LIDOCAINE HCL 2% LOCAL 20 ML VIAL ONE ×2 (10:14→10:15)
[2017-09-03] MEDS ORDERED: SODIUM CHLORIDE 0.9% 500ML 1,000 ML ONE (10:14)
[2017-09-03] MEDS: INSULIN LISPRO 100 UNIT/1 ML 3ML VIAL SQ SCH ×4 (10:24→20:05)
[2017-09-03] MEDS ORDERED: SODIUM CHLORIDE 0.9% 100 ML 100 ML ONE (11:02)
[2017-09-03] MEDS ORDERED: SODIUM CHLORIDE 0.9% 1000ML 1,000 ML ONE (11:05)
[2017-09-03] MEDS ORDERED: ATROPINE SULFATE 0.1 MG/ML 10ML SYR ONE (11:22)
--- NOTE | 2017-09-03 13:51 | Diagnostic Imaging Report ---
PROCEDURE: A single AP view of the chest. COMPARISON: Chest radiograph 09/02/2017, chest CT 08/30/2017 INDICATIONS: STATUS POST PACEMAKER FINDINGS: Limited exam secondary to soft tissue attenuation. Lines/tubes: Interval placement of a left chest wall cardiac pacing device with leads which are faintly visualized but project over the right atrium and right ventricle. Lungs: The lungs are moderately inflated. There is increased vascular congestion and interstitial edema. Pleura: There is no pleural effusion or pneumothorax. Heart and mediastinum: Stable enlargement of the cardiac silhouette. Bones: No acute bony abnormality. IMPRESSION: Cardiomegaly with mildly increased interstitial edema. Dictated by: Tk Moreno M.D. on 09/03/2017 at 13:56 Electronically approved by: Tk Moreno M.D. on 09/03/2017 at 13:56
[2017-09-03] MEDS: CEFAZOLIN SOD 1 GM/D5W 50ML 50 ML IV SCH ×2 (16:00→21:41)
[2017-09-03] MEDS ORDERED: MIDAZOLAM HCL 2 MG/2 ML VIAL ONE (17:57)
[2017-09-03] MEDS ORDERED: FENTANYL CITRATE/PF 100MCG/2 ML INJ ONE (17:57)
[2017-09-03] MEDS ORDERED: SODIUM CHLORIDE 0.9% 1000ML 1,000 ML IV ONE (18:30)
[2017-09-03] MEDS: TRAMADOL HCL 50 MG TAB PO PRN (19:27)
[2017-09-03] MEDS: SIMVASTATIN 20 MG TAB PO SCH (20:02)
[2017-09-04] VITALS (39 sets, daily range): BP systolic 76–150; BP diastolic 48–95
[2017-09-04 05:06] LABS: BASOPHILS % 0.2 % (0.0-1.0); HEMATOCRIT 32.4 % (34.2-44.1); HEMOGLOBIN 10.2 g/dL (12.0-16.0); LYMPHOCYTES # (AUTO) 1.1 (1.0-3.2); LYMPHOCYTES % 8.5 % (18.0-39.1); MEAN CORPUSCULAR HEMOGLOBIN 29.4 pg (28-32); MEAN CORPUSCULAR HGB CONC 31.5 g/dL (31-35); MEAN CORPUSCULAR VOLUME 93.4 fL (81-99); MONOCYTES # (AUTO) 0.8 (0.2-0.8); NEUTROPHILS # (AUTO) 10.6 (2.1-6.9); RED BLOOD COUNT 3.47 x10e6/uL (3.6-5.1); RED CELL DISTRIBUTION WIDTH 17.3 % (11.7-14.4)
[2017-09-04] MEDS: LEVOTHYROXINE SODIUM 100 MCG TAB PO SCH (05:07)
[2017-09-04] MEDS: LEVOTHYROXINE SODIUM 75 MCG TAB PO SCH (05:07)
[2017-09-04 05:19] LABS: ANION GAP 13.9 mmol/L (8-16); BLOOD UREA NITROGEN 41 mg/dL (7-26); BUN/CREATININE RATIO 49 (6-25); CALCIUM 8.3 mg/dL (8.4-10.2); CARBON DIOXIDE 18 mmol/L (22-29); CHLORIDE 113 mmol/L (98-107); CREATININE, SERUM 0.84 mg/dL (0.57-1.11); EST GLOMERULAR FILTRATION RATE > 60 ML/MIN (60-); GLUCOSE 154 mg/dL (74-118); PHOSPHORUS 3.2 MG/DL (2.3-4.7); POTASSIUM 5.9 mmol/L (3.5-5.1); SODIUM 139 mmol/L (136-145)
[2017-09-04 06:29] LABS: PLATELET COUNT 157 x10e3/uL (140-360)
[2017-09-04] MEDS: INSULIN LISPRO 100 UNIT/1 ML 3ML VIAL SQ SCH ×4 (07:56→20:23)
[2017-09-04] MEDS: DOCUSATE SODIUM 100 MG CAP PO SCH ×3 (08:52→18:25)
[2017-09-04] MEDS: PREGABALIN 75 MG CAP PO SCH ×3 (08:52→20:22)
[2017-09-04] MEDS ORDERED: INSULIN REGULAR, HUMAN 100 UNIT/1 ML 3ML VIAL IV ONE (09:00)
[2017-09-04] MEDS ORDERED: ALBUTEROL/IPRATROPIUM 3 ML NEB NEB ONE (09:00)
[2017-09-04] MEDS ORDERED: DEXTROSE 50% SYRINGE 50 ML IV ONE (09:00)
[2017-09-04] MEDS: CEFTRIAXONE SOD 1 GM VIAL IV SCH (09:15)
[2017-09-04] MEDS: CLOPIDOGREL BISULFATE 75 MG TAB PO SCH (09:22)
[2017-09-04] MEDS: ASPIRIN 325 MG TAB PO SCH (09:22)
[2017-09-04] MEDS: METOCLOPRAMIDE HCL 10 MG TAB PO SCH ×3 (09:22→20:23)
[2017-09-04] MEDS: FAMOTIDINE 20 MG TAB PO SCH ×2 (09:22→17:08)
[2017-09-04] MEDS: SODIUM CHLORIDE 0.9% 1000ML 1,000 ML IV SCH (09:23)
[2017-09-04] MEDS: FUROSEMIDE 40 MG TAB PO SCH (09:23)
[2017-09-04] MEDS: ALLOPURINOL 300 MG TAB PO SCH (09:23)
[2017-09-04] MEDS ORDERED: SOD POLYSTYRENE SULFONATE SUSP 15 GM/60 ML BTL PO ONE ×3 (09:30→18:30)
[2017-09-04 10:19] LABS: CREATINE KINASE MB 8.4 ng/mL (0-5.0)
[2017-09-04] MEDS ORDERED: ACETAMINOPHEN/CODEINE 300MG - 30MG TAB PO ONE (10:30)
--- NOTE | 2017-09-04 10:43 | Diagnostic Imaging Report ---
EXAMINATION: CHEST SINGLE (PORTABLE) INDICATION: Chest pain/dyspnea COMPARISON: 09/03/2017 1333 hours. FINDINGS: TUBES and LINES: None. Left-sided cardiac device, unchanged in position. LUNGS: Bilateral pulmonary edema, unchanged. PLEURA: No pleural effusion or pneumothorax. HEART AND MEDIASTINUM: The correct silhouette remains enlarged. BONES AND SOFT TISSUES: No acute osseous lesion. UPPER ABDOMEN: No free air under the diaphragm. IMPRESSION: No significant interval change in bilateral pulmonary edema. Signed by: Dr. Tony Bridges M.D. on 09/04/2017 10:39 AM
[2017-09-04] MEDS ORDERED: SODIUM BICARBONATE 650 MG TAB PO ONE (13:00)
[2017-09-04] MEDS ORDERED: ALBUMIN 25% 12.5GM 0.25 GM/ML BTL IV ONE (13:00)
[2017-09-04] MEDS ORDERED: SODIUM BICARBONATE 8.4% INJ 50 ML SYR IV ONE (13:00)
[2017-09-04 13:22] LABS: % IRON SATURATION 13 % (15-50); IRON 29 ug/dL (50-170); TOTAL IRON BINDING CAPACITY 228 ug/dL (261-478); TRANSFERRIN 163 mg/dL (180-382)
[2017-09-04] MEDS: TRAMADOL HCL 50 MG TAB PO PRN (19:56)
[2017-09-04] MEDS: SIMVASTATIN 20 MG TAB PO SCH (20:23)
[2017-09-04] MEDS ORDERED: FUROSEMIDE INJ 10 MG/ML 4 ML VIAL IV SCH (21:00)
[2017-09-05] VITALS (49 sets, daily range): BP systolic 84–135; BP diastolic 46–108
[2017-09-05] MEDS: SODIUM CHLORIDE 0.9% 1000ML 1,000 ML IV SCH (00:53)
[2017-09-05 05:04] LABS: BASOPHILS % 0.3 % (0.0-1.0); EOSINOPHILS % 0.2 % (0.0-6.0); HEMATOCRIT 31.7 % (34.2-44.1); HEMOGLOBIN 10.1 g/dL (12.0-16.0); MEAN CORPUSCULAR HEMOGLOBIN 29.4 pg (28-32); MEAN CORPUSCULAR HGB CONC 31.9 g/dL (31-35); MEAN CORPUSCULAR VOLUME 92.2 fL (81-99); MONOCYTES # (AUTO) 0.9 (0.2-0.8); MONOCYTES % 8.2 % (4.4-11.3); NEUTROPHILS # (AUTO) 8.5 (2.1-6.9); NEUTROPHILS % 73.7 % (38.7-80.0); PLATELET COUNT 165 x10e3/uL (140-360); RED BLOOD COUNT 3.44 x10e6/uL (3.6-5.1); RED CELL DISTRIBUTION WIDTH 17.2 % (11.7-14.4)
[2017-09-05 05:28] LABS: ALANINE AMINOTRANSFERASE 31 IU/L (0-55); ALBUMIN 2.4 g/dL (3.5-5.0); ALBUMIN/GLOBULIN RATIO 0.6 (0.8-2.0); ALKALINE PHOSPHATASE 106 IU/L (40-150); ANION GAP 14.7 mmol/L (8-16); BLOOD UREA NITROGEN 37 mg/dL (7-26); BUN/CREATININE RATIO 49 (6-25); CALCIUM 8.3 mg/dL (8.4-10.2); CARBON DIOXIDE 22 mmol/L (22-29); CHLORIDE 113 mmol/L (98-107); CREATININE, SERUM 0.75 mg/dL (0.57-1.11); EST GLOMERULAR FILTRATION RATE > 60 ML/MIN (60-); GLUCOSE 123 mg/dL (74-118); SODIUM 145 mmol/L (136-145)
[2017-09-05 05:35] LABS: POTASSIUM 4.7 mmol/L (3.5-5.1)
[2017-09-05] MEDS: LEVOTHYROXINE SODIUM 100 MCG TAB PO SCH (05:58)
[2017-09-05] MEDS: LEVOTHYROXINE SODIUM 75 MCG TAB PO SCH (05:58)
[2017-09-05] MEDS: INSULIN LISPRO 100 UNIT/1 ML 3ML VIAL SQ SCH ×4 (07:30→21:18)
[2017-09-05] MEDS: ASPIRIN 325 MG TAB PO SCH (09:11)
[2017-09-05] MEDS: PREGABALIN 75 MG CAP PO SCH ×3 (09:11→21:16)
[2017-09-05] MEDS: FAMOTIDINE 20 MG TAB PO SCH ×2 (09:11→18:11)
[2017-09-05] MEDS: CEFTRIAXONE SOD 1 GM VIAL IV SCH (09:11)
[2017-09-05] MEDS: CLOPIDOGREL BISULFATE 75 MG TAB PO SCH (09:11)
[2017-09-05] MEDS: ALLOPURINOL 300 MG TAB PO SCH (09:12)
[2017-09-05] MEDS: METOCLOPRAMIDE HCL 10 MG TAB PO SCH ×3 (09:12→21:16)
[2017-09-05] MEDS: TRAMADOL HCL 50 MG TAB PO PRN ×2 (09:13→18:27)
[2017-09-05] MEDS ORDERED: FUROSEMIDE INJ 10 MG/ML 4 ML VIAL ONE (16:34)
[2017-09-05] MEDS ORDERED: FUROSEMIDE INJ 10 MG/ML 4 ML VIAL IV ONE (17:00)
[2017-09-05] MEDS: DOCUSATE SODIUM 100 MG CAP PO SCH (18:11)
[2017-09-05] MEDS: FUROSEMIDE INJ 10 MG/ML 4 ML VIAL IV SCH (21:16)
[2017-09-05] MEDS: SIMVASTATIN 20 MG TAB PO SCH (21:16)
[2017-09-06] VITALS (36 sets, daily range): BP systolic 98–160; BP diastolic 53–98
[2017-09-06] MEDS: SODIUM CHLORIDE 0.9% 1000ML 1,000 ML IV SCH (03:10)
[2017-09-06 05:17] LABS: BASOPHILS % 0.4 % (0.0-1.0); HEMATOCRIT 31.6 % (34.2-44.1); HEMOGLOBIN 9.8 g/dL (12.0-16.0); LYMPHOCYTES # (AUTO) 1.8 (1.0-3.2); LYMPHOCYTES % 17.3 % (18.0-39.1); MEAN CORPUSCULAR HEMOGLOBIN 29.2 pg (28-32); MONOCYTES % 9.6 % (4.4-11.3); NEUTROPHILS # (AUTO) 7.6 (2.1-6.9); NEUTROPHILS % 71.6 % (38.7-80.0); PLATELET COUNT 191 x10e3/uL (140-360); RED BLOOD COUNT 3.36 x10e6/uL (3.6-5.1); RED CELL DISTRIBUTION WIDTH 17.2 % (11.7-14.4)
[2017-09-06 05:46] LABS: ANION GAP 10.6 mmol/L (8-16); BLOOD UREA NITROGEN 34 mg/dL (7-26); BUN/CREATININE RATIO 43 (6-25); CALCIUM 8.4 mg/dL (8.4-10.2); CARBON DIOXIDE 28 mmol/L (22-29); CHLORIDE 111 mmol/L (98-107); CREATININE, SERUM 0.79 mg/dL (0.57-1.11); EST GLOMERULAR FILTRATION RATE > 60 ML/MIN (60-); GLUCOSE 140 mg/dL (74-118); POTASSIUM 4.6 mmol/L (3.5-5.1); SODIUM 145 mmol/L (136-145)
[2017-09-06] MEDS: LEVOTHYROXINE SODIUM 100 MCG TAB PO SCH (06:03)
[2017-09-06] MEDS: LEVOTHYROXINE SODIUM 75 MCG TAB PO SCH (06:03)
[2017-09-06] MEDS: INSULIN LISPRO 100 UNIT/1 ML 3ML VIAL SQ SCH ×4 (06:04→20:55)
[2017-09-06] MEDS: TRAMADOL HCL 50 MG TAB PO PRN ×3 (06:17→21:47)
[2017-09-06 06:25] LABS: MAGNESIUM 1.6 MG/DL (1.3-2.1); PHOSPHORUS 3.5 MG/DL (2.3-4.7)
[2017-09-06] MEDS: FAMOTIDINE 20 MG TAB PO SCH ×2 (07:29→16:12)
[2017-09-06] MEDS: ASPIRIN 325 MG TAB PO SCH (08:22)
[2017-09-06] MEDS: FUROSEMIDE INJ 10 MG/ML 4 ML VIAL IV SCH ×2 (08:22→21:47)
[2017-09-06] MEDS: CEFTRIAXONE SOD 1 GM VIAL IV SCH (08:22)
[2017-09-06] MEDS: DOCUSATE SODIUM 100 MG CAP PO SCH ×2 (08:22→16:12)
[2017-09-06] MEDS: CLOPIDOGREL BISULFATE 75 MG TAB PO SCH (08:23)
[2017-09-06] MEDS: ALLOPURINOL 300 MG TAB PO SCH (08:23)
[2017-09-06] MEDS: METOCLOPRAMIDE HCL 10 MG TAB PO SCH ×3 (08:23→21:47)
[2017-09-06] MEDS: PREGABALIN 75 MG CAP PO SCH (08:24)
--- NOTE | 2017-09-06 14:38 | Operative Report ---
DATE OF PROCEDURE: September 03, 2017 ATTENDING PHYSICIAN: Val Yañez MD PROCEDURE PERFORMED: Permanent pacemaker implant. INDICATIONS: Third-degree AV block. DETAILS OF PROCEDURE: The patient was brought to the superintendent geophysical laboratory in a fasting state. Sedation was provided by the Anesthesia Department. She was intubated and sedated. Temporary pacemaker was in place from the right groin, and its location was adjusted for 100% pacing. A venogram was performed from the left arm, demonstrating the location of the subclavian vein. The left subclavian area was prepped with scrub and 2% Xylocaine. The left subclavian vein was located with the percutaneous needle, and a J wire was advanced into the superior vena cava and clipped to the drape. A pocket of adequate dimensions was performed with both sharp and blunt dissection. There was minimal, if any, bleeding, and no cautery was necessary. A 7-Luxembourgish sheath was advanced over the J wire, and a 2nd J wire was advanced through the sheath. The sheath was removed and replaced over one of the 2 J wires. The other one was clipped to the drape. Then the ventricular lead was advanced into the right ventricular apex and screwed in place and tested for both sensing and capture. The lead was sewn into place with #0 silk. The generator was attached to the ventricular lead. Then a 2nd sheath was advanced over the other J wire. An atrial lead was advanced into the right atrial appendage and screwed in place. It was tested for sensing and capture and found to be adequate. The atrial lead was sewn into place with #0 silk. The atrial lead was attached to the generator as well with the torque wrench. There was a 4 x 4 antibiotic soaked placed in the pocket previously, and it was removed. Then the generator was placed into the pocket and sewn to the muscle again with #0 silk. The deep tissues were closed with 3-0 Vicryl, and the skin was closed with oh. Fluoroscopy showed good location of the leads and generator, and no pneumothorax was found. The generator is [employer] Dream Heat IPG W1DR01 [place] XT DR MRI. The model number is W1DR01, serial number [id number]. The atrial lead is Med[employer]onic [id number], serial number [id number]. The ventricular lead is Medtronic [id number], 52 cm length, serial number [id number]. The atrial output is 0.5 msec, 1.0 V. The impedance is 581 ohms. The ventricular output is 0.5 msec, 0.7 V, current 1.1 milliamps, impedance 565 ohms. Sensing and capture information is included. FINAL IMPRESSION 1. Successful dual-chamber pacemaker implant. 2. Third-degree atrioventricular block. Job#: [id number] cc:VAL YAÑEZ MD
--- NOTE | 2017-09-06 14:49 | Cardiology Report ---
DATE OF STUDY: August 30, 2017 RESTING MYOVIEW PERFUSION STUDY ATTENDING PHYSICIAN: Dr. Val Yañez. This originally designed as a 2-day study. Resting perfusion images were taken after an injection of 33 millicuries of technetium-99m Myoview. Due to patient's condition and progress, stress images were not obtained. Inspection of resting perfusion images showed a fixed inferior defect relatively small in size, inferoseptal. As there are no stress images, it is not clear whether this represents a scar or resting ischemia. There is also no left ventricular function analysis performed. FINAL IMPRESSION 1. Abnormal resting Myoview. 2. Small inferior defect may represent scar or ischemia at rest. Job#: [id number] JIV cc:VAL YAÑEZ MD
[2017-09-06] MEDS ORDERED: SODIUM CHLORIDE FLUSH 10 ML SYR ONE (19:25)
[2017-09-06] MEDS ORDERED: SODIUM BICARBONATE 8.4% INJ 50 ML SYR ONE (19:25)
[2017-09-06] MEDS ORDERED: EPINEPHRINE HCL SYRINGE ONE (19:25)
[2017-09-06] MEDS: SIMVASTATIN 20 MG TAB PO SCH (21:47)
== END 2017-09-06 22:42 | disposition expired | DRG 853 ==
LOC: ER 04:04 → ERHOLD 05:35 → MED/SURG 06:20 → ICU 08-31 07:29 → IMCU 09-06 21:15
PROVIDERS: ADMIT Internal Medicine; ATTEND Internal Medicine
PROC: 02703ZZ Dilation of Coronary Artery, One Artery, Percutaneous Approach (ICD-10-PCS; principal; 2017-08-31)
PROC: 5A1223Z Performance of Cardiac Pacing, Continuous (ICD-10-PCS; 2017-08-31)
PROC: 4A023N7 Measurement of Cardiac Sampling and Pressure, Left Heart, Percutaneous Approach (ICD-10-PCS; 2017-08-31)
PROC: B2111ZZ Fluoroscopy of Multiple Coronary Arteries using Low Osmolar Contrast (ICD-10-PCS; 2017-08-31)
PROC: 0JH606Z Insertion of Pacemaker, Dual Chamber into Chest Subcutaneous Tissue and Fascia, Open Approach (ICD-10-PCS; 2017-09-06)
PROC: 02H63JZ Insertion of Pacemaker Lead into Right Atrium, Percutaneous Approach (ICD-10-PCS; 2017-09-06)
PROC: 02HK3JZ Insertion of Pacemaker Lead into Right Ventricle, Percutaneous Approach (ICD-10-PCS; 2017-09-06)
PROC: 5A02215 Assistance with Cardiac Output using Pulsatile Compression, Continuous (ICD-10-PCS; 2017-09-06)
DX: A41.9 Sepsis, unspecified organism (principal); I21.4 Non-ST elevation (NSTEMI) myocardial infarction; I50.31 Acute diastolic (congestive) heart failure; G45.9 Transient cerebral ischemic attack, unspecified; N39.0 Urinary tract infection, site not specified; Z68.43 Body mass index [BMI] 50.0-59.9, adult; I44.2 Atrioventricular block, complete; E87.2 Acidosis; E46 Unspecified protein-calorie malnutrition; I11.0 Hypertensive heart disease with heart failure; I25.10 Atherosclerotic heart disease of native coronary artery without angina pectoris; E78.5 Hyperlipidemia, unspecified; E66.01 Morbid (severe) obesity due to excess calories; R00.1 Bradycardia, unspecified; G47.33 Obstructive sleep apnea (adult) (pediatric); E03.9 Hypothyroidism, unspecified; E87.5 Hyperkalemia; M54.16 Radiculopathy, lumbar region; E77.8 Other disorders of glycoprotein metabolism; H49.02 Third [oculomotor] nerve palsy, left eye; E11.65 Type 2 diabetes mellitus with hyperglycemia; E11.22 Type 2 diabetes mellitus with diabetic chronic kidney disease; R53.81 Other malaise; G43.B0 Ophthalmoplegic migraine, not intractable
CPT/HCPCS: 33208; 33210; 36415; 70450; 71045; 71260; 78451; 80048; 80053; 80061; 81001; 82088; 82550; 82553; 82948; 83036; 83540; 83605; 83735; 83880; 84100; 84443; 84466; 84484; 85025; 85610; 85730; 87040; 87070; 87086; 87205; 92920; 92950; 93005; 93306; 93454; 93880; 94660; 96372; 99284; A9502; J0171; J0461; J0690; J0696; J1327; J1644; J1650; J1940; J2001; J2250; J2270; J2405; J2550; J7030; J7040; J7799; Q9967